=== PATIENT | female | born 1955 | race Caucasian/White ===

== ENCOUNTER → 2020-12-11 | Outpatient (CLI) | payer OTHER ==
[~2020-12-11] MED LIST: NORCO 5-325 TA1 EACH PO; ULTRAM50 MG PO
== END ==
LOC: KOH-I 15:03
DX: M25.562 Pain in left knee (principal); M25.561 Pain in right knee; M79.672 Pain in left foot; M79.671 Pain in right foot; M17.11 Unilateral primary osteoarthritis, right knee
CPT/HCPCS: 73564; 73630

== ENCOUNTER → 2021-10-16 | Outpatient (CLI) | payer MEDICARE, OTHER ==
[~2021-10-16] MED LIST changes: +ONDANSETRON ODT4 MG SL
== END ==
LOC: KOH-I 13:53
DX: M25.561 Pain in right knee (principal); M25.562 Pain in left knee; M17.0 Bilateral primary osteoarthritis of knee
CPT/HCPCS: 73560

== ENCOUNTER → 2021-10-22 | Outpatient (CLI) | payer MEDICARE, OTHER | LOC: KOH-I 13:00 | DX: M25.561 Pain in right knee (principal); M25.562 Pain in left knee; E04.9 Nontoxic goiter, unspecified | CPT/HCPCS: 76536; 93922; 93925 ==

== ENCOUNTER 2022-01-25 13:41 | Emergency (ER) | payer OTHER, MEDICARE ==
[2022-01-25 14:41] LABS: HEMOGLOBIN 13.8 gm/dl (12.3-15.3); RED BLOOD COUNT 4.75 M/UL (4.00-5.10); WHITE BLOOD COUNT 6.8 K/UL (4.5-11.0)
[2022-01-25 15:26] LABS: BUN/CREATININE RATIO 17 (0-10)
[2022-01-25] MEDS ORDERED: PERCOCET 5/325 T1 EA PO ×2 (18:01→18:20)
== END 2022-01-25 19:33 | disposition home or self-care (01) ==
LOC: ER1 13:41
PROVIDERS: Family Medicine
DX: S20.212A Contusion of left front wall of thorax, initial encounter (principal); S80.02XA Contusion of left knee, initial encounter; S80.01XA Contusion of right knee, initial encounter; M25.521 Pain in right elbow; M25.511 Pain in right shoulder; E78.5 Hyperlipidemia, unspecified; E11.9 Type 2 diabetes mellitus without complications; V49.50XA Passenger injured in collision with unspecified motor vehicles in traffic accident, initial encounter; W22.12XA Striking against or struck by front passenger side automobile airbag, initial encounter; Y92.410 Unspecified street and highway as the place of occurrence of the external cause
CPT/HCPCS: 71260; 73564; 80053; 85025; 96374; 96375; 99284; J2270; J2405; Q9967

== ENCOUNTER → 2022-02-17 | Outpatient (CLI) | payer MEDICARE, OTHER ==
[~2022-02-17] MED LIST changes: +PERCOCET 5/325 T1 EA PO
== END ==
LOC: US 09:49
DX: S20.02XA Contusion of left breast, initial encounter (principal); X58.XXXA Exposure to other specified factors, initial encounter
CPT/HCPCS: 76641-LT